=== PATIENT | female | born 1950 | race Caucasian/White ===

== ENCOUNTER 2018-06-28 16:20 | Emergency (ER) | payer BC ==
[2018-06-28 17:00] VITALS: BP 122/68; PULSE 64; TEMP 98.4; BMI 42.0
[2018-06-28] MEDS ORDERED: MECLIZINE HCL 25 MG TABLET (FP) PO ONE (18:45)
--- NOTE | 2018-06-28 18:54 | PDOC ---
History of Present Illness - General Chief Complaint: Lightheaded Stated Complaint: DIZZY & NAUSEA Time Seen by Provider: 06/28/18 17:01 History Source: Patient, Friend Exam Limitations: No Limitations - History of Present Illness Initial Comments: 06/28/18 18:48 CHIEF COMPLAINT: "I feel dizzy since 11 AM this morning." HISTORY OF PRESENT ILLNESS: 67-year-old female with a history of hypertension and borderline cholesterol presents complaining of feeling dizzy like the room is spinning since 11 AM this morning. She states recently she has been under a lot of stress and has been sleeping poorly for several weeks. Today she was not feeling well and she noted some symptoms of dizziness like the room was moving since 11 AM this morning. She states that the symptoms are better when she lies very still without moving. When she turns her head or sits up or changes position, the dizziness and vertigo gets worse. There is nausea but no vomiting. There is no fever. She has had some recent headaches, but no headache today. There is no change in vision. There is no change in facial expression per her friend, and there is no change in speech or swallowing. There is no numbness or weakness. REVIEW OF SYSTEMS: GENERAL/CONSTITUTIONAL: No fever or chills. No weakness. No weight change. HEAD, EYES, EARS, NOSE AND THROAT: No change in vision. No ear pain or discharge. No sore throat. CARDIOVASCULAR: No chest pain or shortness of breath. RESPIRATORY: No cough, wheezing, or hemoptysis. GASTROINTESTINAL: Positive nausea but no vomiting or diarrhea. No rectal bleeding. GENITOURINARY: No dysuria, frequency, or change in urination. MUSCULOSKELETAL: No joint or muscle swelling or pain. No neck or back pain. SKIN AND BREASTS: No rash or easy bruising. NEUROLOGIC: Positive intermittent headache, but no headache today. Positive vertigo and dizziness since 11 AM this morning. See history of present illness. No focal numbness or weakness. PSYCHIATRIC: No depression. Positive anxiety and stress related to work and other things. ENDOCRINE: No increased thirst. No abnormal weight change. HEMATOLOGIC/LYMPHATIC: No anemia, easy bleeding, or history of blood clots. ALLERGIC/IMMUNOLOGIC: No hives or skin allergy. No latex allergy. Past History - Past Medical History Allergies/Adverse Reactions: Allergies Allergy/AdvReac Type Severity Reaction Status Date / Time Penicillins Allergy Intermediate Hives Verified 06/28/18 16:50 Home Medications: Ambulatory Orders Valsartan/Hydrochlorothiazide [Diovan Hct 160-25 mg Tablet] 1 combo PO DAILY 10/03 Aspirin Coated [Ecotrin -] 81 mg PO DAILY 06/28/18 Meclizine HCl [Antivert -] 25 mg PO QID PRN #28 tablet 06/28/18 Naproxen Sodium [Aleve] 220 mg PO BID PRN 06/28/18 Cancer: Yes (CERVICAL CANCER 8 years ago surgery and radiation) COPD: No HTN: Yes Hypercholesterolemia: No (borderline cholesterol, but no treatment recommended) - Immunization History Td Vaccination: No - Suicide/Smoking/Psychosocial Hx Smoking Status: No Smoking History: Never smoked Number of Cigarettes Smoked Daily: 0 Hx Alcohol Use: Yes (FEW OCCASIONS) Drug/Substance Use Hx: No Substance Use Type: None *Physical Exam - Vital Signs Last Vital Signs Temp Pulse Resp BP Pulse Ox 98.4 F 64 18 122/68 99 06/28/18 16:46 06/28/18 16:46 06/28/18 16:46 06/28/18 16:46 06/28/18 16:46 - Physical Exam Comments: 06/28/18 18:50 GENERAL: The patient is awake, alert, and fully oriented, in no acute distress. HEAD: Normal with no signs of trauma. EYES: Pupils equal, round and reactive to light, extraocular movements intact, sclera anicteric, conjunctiva clear. No nystagmus is on upward or downward gaze. Mild lateral gaze night stag mist to the right, extinguishes. ENT: Ears normal, nares patent, oropharynx clear without exudates. Moist mucous membranes. NECK: Normal range of motion, supple without lymphadenopathy, JVD, or masses. LUNGS: Breath sounds equal, clear to auscultation bilaterally. No wheezes, and no crackles. HEART: Regular rate and rhythm, normal S1 and S2 without murmur, rub or gallop. ABDOMEN: Soft, nontender, normoactive bowel sounds. No guarding, no rebound. No masses. EXTREMITIES: Normal range of motion, no edema. No clubbing or cyanosis. No cords, erythema, or tenderness. NEURO: Mental status: The patient is oriented x3. Cranial nerves: Cranial nerves II through XII are intact. No facial asymmetry. Motor: The upper extremities are 5 over 5 in all muscle groups. The lower extremities are 5 over 5 in all muscle groups. Sensation: Sensation is intact to light touch throughout. Cerebellar: Nzbize-ihxhqi-sbyd is normal in both upper extremities. Heel-knee- garcia is normal in both lower extremities. Reflexes: 2+ and symmetric in the upper and lower extremities. Gait: Normal. Heel and toe walking are slow but otherwise normal. PSYCH: Somewhat tearful when describing her work related stress and difficulty sleeping at night. Denies suicidal or homicidal ideation. SKIN: Warm, Dry, normal turgor, no rashes or lesions noted. ED Treatment Course - LABORATORY CBC & Chemistry Diagram: 06/28/18 19:10 06/28/18 19:10 - RADIOLOGY Radiology Studies Ordered: Category Date Time Status HEAD CT WITHOUT CONTRAST [CT] Stat CT Scan 06/28/18 18:44 Ordered Medical Decision Making - Medical Decision Making 06/28/18 18:52 Patient is a 67-year-old female with a history of hypertension. She presents complaining of recent stressors and poor sleep. She also complains of onset this morning of vertigo, worse with movements since 11 AM this morning. At rest she feels fine, but upon moving her head she gets vertigo. Her neurological examination is normal without focal deficits. She also has complained of some intermittent headaches. Impression: Nonspecific headache Positional vertigo since this morning without focal neurological deficits Increased stressors at home and work Plan: Head CT scan CBC, comp EKG Meclizine for symptomatically treatment Further plans pending results 06/28/18 19:[address] Walter Navarro at change of shift with above studies pending. *DC/Admit/Observation/Transfer Diagnosis at time of Disposition: Vertigo - Discharge Dispostion Condition at time of disposition: Good - Prescriptions Prescriptions: Meclizine HCl [Antivert -] 25 mg PO QID PRN #28 tablet PRN Reason: dizziness and vertigo - Referrals Referrals: Cristine Moore MD [Primary Care Provider] - - Patient Instructions - Post Discharge Activity
[2018-06-28] MEDS ORDERED: MECLIZINE HCL 25 MG TABLET (FP) ONE (19:00)
[2018-06-28 19:34] LABS: EOS % 0.3 % (0-4.5); HEMATOCRIT 41.8 % (32.4-45.2); HEMOGLOBIN 14.2 GM/dl (10.7-15.3); LYMPH % 16.1 % (8-40); MCH 31.1 pg (25.7-33.7); MEAN CELL VOLUME 91.6 fl (80-96); MONO % 4.5 % (3.8-10.2); NEUT % 78.1 % (42.8-82.8); PLATELET COUNT 261 K/MM3 (134-434); RBC 4.57 M/mm3 (3.60-5.2); RDW 11.8 % (11.6-15.6); WHITE BLOOD COUNT 10.2 K/mm3 (4.0-10.8)
[2018-06-28 19:52] LABS: ALBUMIN 3.8 g/dl (3.5-5.0); ALK PHOS 46 U/L (32-92); ANION GAP 8 MMOL/L (8-16); BILIRUBIN,TOTAL 1.4 mg/dl (0.2-1.0); BLOOD UREA NITROGEN 17 mg/dl (7-18); CALCIUM 9.3 mg/dl (8.4-10.2); CHLORIDE 101 mmol/L (98-107); CO2 29 mmol/L (22-28); CREATININE 0.6 mg/dl (0.6-1.3); GLUCOSE,RANDOM 140 mg/dl (74-106); POTASSIUM 3.9 mmol/L (3.5-5.1); SGOT/AST 24 U/L (10-42); SGPT/ALT 20 U/L (10-40); SODIUM 138 mmol/L (136-145); TOT PROT 6.8 g/dl (6.4-8.3)
--- NOTE | 2018-06-28 20:53 | PDOC ---
*Physical Exam - Vital Signs Last Vital Signs Temp Pulse Resp BP Pulse Ox 98.4 F 64 18 122/68 99 06/28/18 16:46 06/28/18 16:46 06/28/18 16:46 06/28/18 16:46 06/28/18 16:46 ED Treatment Course - LABORATORY CBC & Chemistry Diagram: 06/28/18 19:10 06/28/18 19:10 - ADDITIONAL ORDERS Additional order review: Laboratory Results 06/28/18 19:10 Sodium 138 Potassium 3.9 Chloride 101 Carbon Dioxide 29 H Anion Gap 8 BUN 17 Creatinine 0.6 Creat Clearance w eGFR > 60 Random Glucose 140 H Calcium 9.3 Total Bilirubin 1.4 H AST 24 D ALT 20 D Alkaline Phosphatase 46 Total Protein 6.8 Albumin 3.8 06/28/18 19:10 RBC 4.57 MCV 91.6 MCHC 34.0 RDW 11.8 MPV 9.0 Neutrophils % 78.1 Lymphocytes % 16.1 Monocytes % 4.5 Eosinophils % 0.3 Basophils % 1.0 - Medications Given in the ED: ED Medications Discontinued Medications Generic Name Dose Route Start Last Admin Trade Name Freq PRN Reason Stop Dose Admin Meclizine HCl 25 mg 06/28/18 18:45 06/28/18 19:10 Antivert - PO 06/28/18 18:46 25 mg ONCE ONE Administration Progress Note - Progress Note Progress Note: Care of this patient was transferred to [place] from Dr. Chacon at 1900 hrs. Patient is a 67-year-old female who comes in complaining of vertigo-type symptoms. Patient had a workup including labs and head CT. Workup was negative including normal white count and no left shift. And chemistries were unremarkable. Head CT was negative for any acute intracranial pathology Patient was given meclizine here in the emergency room with improvement of her symptoms Patient will be given a note for a couple days off from work and a prescription for meclizine was sent to her pharmacy. Patient discharged home and will follow up with her primary care doctor *DC/Admit/Observation/Transfer Diagnosis at time of Disposition: Vertigo - Discharge Dispostion Disposition: HOME Condition at time of disposition: Good Decision to Admit order: No - Prescriptions Prescriptions: Meclizine HCl [Antivert -] 25 mg PO QID PRN #28 tablet PRN Reason: dizziness and vertigo - Referrals Referrals: Teresa,Cristine, MD [Primary Care Provider] - - Patient Instructions Additional Instructions: Take meclizine 1 tablet as often as every 4-6 hours as needed for dizziness. Return to the emergency department immediately with ANY new, persistent or worsening symptoms. Continue any medications as previously prescribed by your physician. You should follow up with your primary doctor as soon as possible regarding today's emergency department visit. . Please make sure your doctor reviews the results of your emergency evaluation. Thank you for coming to the Emergency Department today for your care. It was a pleasure to see you today. Please note that your evaluation is INCOMPLETE until you follow-up with your doctor. - Post Discharge Activity Forms/Work/School Notes: Back to Work
--- NOTE | 2018-06-29 11:20 | EKG ---
Test Reason : Blood Pressure : / mmHG Vent. Rate : 066 BPM Atrial Rate : 066 BPM P-R Int : 142 ms QRS Dur : 082 ms QT Int : 412 ms P-R-T Axes : 059 049 044 degrees QTc Int : 431 ms NORMAL SINUS RHYTHM NORMAL ECG NO PREVIOUS ECGS AVAILABLE Confirmed by VALERI MCCARTHY, NELSON ([id number]) on 06/29/2018 11:19:45 AM Referred By: MARY Confirmed By:NELSON TRAMMELL MD
== END 2018-06-28 20:59 | disposition home or self-care (01) ==
LOC: SUPCPDRO 16:20 → FER 16:20
DX: R42 Dizziness and giddiness (principal); I10 Essential (primary) hypertension
CPT/HCPCS: 36415; 70450-TC; 80053; 85025; 93005; 99283-25

== ENCOUNTER 2019-10-17 09:46 | Emergency (ER) | payer BC ==
--- NOTE | 2019-10-17 09:55 | PDOC ---
History of Present Illness <Tobias Dunn - Last Filed: 10/17/19 13:03> - History of Present Illness Initial Comments: 10/17/19 09:54 HPI: 69 y/o F with hx of HTN, borderline cholestrol, and urolithiasis presenting with right flank pain that started 2 days ago. Pain was gradual in onset and 6/ 10 at its worst. Currently only 4/10. She tried tylenol with minimal relief. Pain radiates to RLQ. She also reports frequent urination but with dribbling and difficulty with continuing stream. Also reports nausea but denies emesis. Denies pain on urination, hematuria, foul smell, chest pain, SOB, fever. She reports chronic back pain but states this feels different from her pain. She reports tolerating diet; she has chronic constipation and usually has bouts of diarrhea in the midst of her constipation; last diarrhea was 2 days ago PMHx: as noted above ROS: as noted SHx: Denies tobacco use; occasional alcohol use; no rec drugs Allergies: NKDA ROS: GENERAL/CONSTITUTIONAL: No fever. No weakness. HEAD, EYES, EARS, NOSE AND THROAT: No change in vision. No ear pain or discharge. No sore throat. CARDIOVASCULAR: No chest pain or shortness of breath RESPIRATORY: No cough, wheezing, or hemoptysis. GASTROINTESTINAL: +nausea; no vomiting, diarrhea or constipation. GENITOURINARY: No dysuria, frequency MUSCULOSKELETAL: No joint or muscle swelling or pain. No neck or back pain. SKIN: No rash NEUROLOGIC: No headache, vertigo, loss of consciousness, or change in strength/ sensation. ENDOCRINE: No increased thirst. No abnormal weight change HEMATOLOGIC/LYMPHATIC: No anemia, easy bleeding, or history of blood clots. ALLERGIC/IMMUNOLOGIC: No hives or skin allergy. PE: GENERAL: Awake, alert, and fully oriented, no acute distress HEAD: No signs of trauma, normocephalic, atraumatic EYES: EOMI, sclera anicteric, conjunctiva clear ENT: Auricles normal inspection, hearing grossly normal, nares patent, oropharynx clear without exudates. Moist mucosa NECK: Normal ROM, no lymphadenopathy LUNGS: No increased work of breathing, symmetrical chest rise, clear to auscultation bilaterally, no wheezes, crackles or rhonchi HEART: Regular rate and rhythm, normal S1 and S2, no murmur, peripheral pulses 2 + and equal bilaterally. ABDOMEN: Soft, nondistended, minimal RLQ ttp without guarding or rebound, Right CVAT, normoactive bowel sounds. No guarding, no rebound. No masses. MUSCULOSKELETAL: Normal inspection, FROM NEUROLOGICAL: Cranial nerves II through XII grossly intact. Normal speech, normal gait, no focal sensorimotor deficits SKIN: Warm, Dry, normal turgor, no rashes or lesions noted <Rebecca Negron - Last Filed: 10/17/19 19:38> - General Chief Complaint: Pain Stated Complaint: RT SIDE BACK PAIN Time Seen by Provider: 10/17/19 09:52 Past History <Tobias Dunn - Last Filed: 10/17/19 13:03> - Past Medical History Cancer: Yes (CERVICAL CANCER 8 years ago surgery and radiation) COPD: No HTN: Yes Hypercholesterolemia: No (borderline cholesterol, but no treatment recommended) - Immunization History Td Vaccination: No - Psycho Social/Smoking Cessation Hx Smoking Status: No Smoking History: Never smoked Number of Cigarettes Smoked Daily: 0 Hx Alcohol Use: Yes (FEW OCCASIONS) Drug/Substance Use Hx: No Substance Use Type: None <Rebecca Negron - Last Filed: 10/17/19 19:38> - Past Medical History Allergies/Adverse Reactions: Allergies Allergy/AdvReac Type Severity Reaction Status Date / Time Penicillins Allergy Intermediate Hives Verified 10/17/19 10:17 Home Medications: Ambulatory Orders Valsartan/Hydrochlorothiazide [Diovan Hct 160-25 mg Tablet] 1 combo PO DAILY 10/03 Desvenlafaxine [Desvenlafaxine ER] 50 mg PO ASDIR 10/17/19 Diclofenac Sodium 75 mg PO ASDIR 10/17/19 Propylthiouracil 50 mg PO DAILY 10/17/19 *Physical Exam - Vital Signs Last Vital Signs Temp Pulse Resp BP Pulse Ox 99 F 87 20 154/99 98 10/17/19 09:47 10/17/19 09:47 10/17/19 09:47 10/17/19 09:47 10/17/19 09:47 <Tobias Dunn - Last Filed: 10/17/19 13:03> ED Treatment Course - LABORATORY CBC & Chemistry Diagram: 10/17/19 10:30 10/17/19 10:30 - ADDITIONAL ORDERS Additional order review: Laboratory Results 10/17/19 10/17/19 10:30 10:30 Sodium 139 Potassium 4.2 Chloride 106 Carbon Dioxide 26 Anion Gap 7 L BUN 12.0 Creatinine 0.7 Est GFR (CKD-EPI)AfAm 103.18 Est GFR (CKD-EPI)NonAf 89.03 Random Glucose 106 Calcium 9.2 Total Bilirubin 1.3 H AST 21 ALT 23 Alkaline Phosphatase 36 L Total Protein 6.5 Albumin 3.5 Urine Color Yellow Urine Appearance Clear Urine pH 6.0 Urine Protein Negative Urine Glucose (UA) Negative Urine Ketones Trace Urine Blood 2+ H Urine Nitrite Negative Urine Bilirubin 1+ H Urine Urobilinogen 1.0 Ur Leukocyte Esterase Trace H Urine RBC 2-5 Urine WBC 2-5 Ur Transition Epith Cell Moderate Calcium Oxalate Crystal Few Urine Mucus 1+ 10/17/19 10:30 RBC 4.47 MCV 92.4 MCHC 34.2 RDW 11.9 MPV 9.2 Neutrophils % 68.4 Lymphocytes % 23.5 Monocytes % 6.8 Eosinophils % 0.7 Basophils % 0.6 - Medications Given in the ED: ED Medications Discontinued Medications Generic Name Dose Route Start Last Admin Trade Name Freq PRN Reason Stop Dose Admin Sodium Chloride 1,000 mls @ 1,000 mls/hr 10/17/19 10:20 10/17/19 10:32 Normal Saline - IV 10/17/19 11:19 1,000 mls/hr ASDIR STA Administration Ketorolac Tromethamine 15 mg 10/17/19 11:24 10/17/19 11:30 Toradol Injection - IVPUSH 10/17/19 11:25 15 mg ONCE ONE Administration <Tobias Dunn - Last Filed: 10/17/19 13:03> - LABORATORY CBC & Chemistry Diagram: 10/17/19 10:30 10/17/19 10:30 <Rebecca Negron - Last Filed: 10/17/19 19:38> Medical Decision Making - Medical Decision Making 10/17/19 10:50 69 y/o F with hx of HTN, borderline cholestrol, and urolithiasis presenting with right flank pain that started 2 days ago associated with dribbling urination and nausea. DDx includes UTI, pyelo, kidney stone. Partial SBO can be considered as well -ua, cbc, cmp, ivf 10/17/19 19:37 UA with 2+ blood; will proceed with CT Ct negaitve will Dc home with likely passed stone vs back pain exacerbation conservative management; return pcxns discussed; no additional questions <Rebecca Negron - Last Filed: 10/17/19 19:38> Discharge - Discharge Information Problems reviewed: Yes - Admission No <Tobias Dunn - Last Filed: 10/17/19 13:03> - Discharge Information Problems reviewed: Yes <Rebecca Negron - Last Filed: 10/17/19 19:38> - Discharge Information Clinical Impression/Diagnosis: Back pain Qualifiers: Back pain location: thoracic back pain Chronicity: acute Back pain laterality: right Qualified Code(s): M54.6 - Pain in thoracic spine Condition: Stable Disposition: HOME - Follow up/Referral Referrals: Lazaro Gomez MD [Staff Physician] - - Patient Discharge Instructions Patient Printed Discharge Instructions: Thoracic Back Pain Additional Instructions: Rest, heat or ice, avoid sitting for prolonged periods of time. Follow-up primary physician in 2 days. Return to ER if symptoms worse.
[2019-10-17 10:02] VITALS: BP 154/99; PULSE 87; TEMP 99; BMI 42.0
[2019-10-17] MEDS ORDERED: SODIUM CHLORIDE 1,000 ML IV STA (10:20)
--- NOTE | 2019-10-17 10:33 | PDOC ---
Attending Attestation - Resident Resident Name: Jamil,Rebecca - ED Attending Attestation I have performed the following: I have examined & evaluated the patient, The case was reviewed & discussed with the resident, I agree w/resident's findings & plan, Exceptions are as noted - HPI HPI: 10/17/19 10:29 Right flank and right lower quadrant pain for 3 days, intermittent but recurrent. History of stones right UV junction 5 years ago, passed spontaneously. Complete hysterectomy for uterine cancer, including bilateral oophorectomy 10 years ago. High blood pressure and recent back pain with radiculopathy, treated with injections by pain management physician. No fever/chills, dysuria, or hematuria. However, admits frequency, passing only small amounts of urine with each episode. - Physicial Exam PE: 10/17/19 10:31 Physical exam: Afebrile, vital signs normal. Right lower quadrant tenderness to deep palpation without guarding or rebound. Mild CVAT. Remainder of exam normal - Medical Decision Making 10/17/19 10:32 Assessment: Probable recurrent renal colic. Rule out infection. Other possibilities include diverticulitis, appendicitis, exacerbation of chronic back pain. Total hysterectomy would preclude uterine/ovarian disease. Plan: Urinalysis, urine culture, CBC and chemistries, further evaluation depending on results. Pain control and fluids. 10/17/19 12:50 Urinalysis with 2-5 red cells, 2-5 white cells. No nitrites or leukocyte esterase CBC and chemistries without significant abnormalities. Specifically, white blood count is normal as his renal function CT is negative, without evidence of urinary tract calculi or other urinary abnormality. GI tract appears normal. The patient symptoms are likely related to her recently exacerbated back pain. Symptomatic treatment and close follow-up. Pain is improved and she is in no significant pain or other distress at discharge with friend to follow-up as directed 10/17/19 13:11 Tylenol 3 prescribed using a written prescription. E prescribing is not functioning.
[2019-10-17 11:08] LABS: BASO % 0.6 % (0-2.0); EOS % 0.7 % (0-4.5); HEMATOCRIT 41.3 % (32.4-45.2); HEMOGLOBIN 14.1 GM/dl (10.7-15.3); LYMPH % 23.5 % (8-40); MCH 31.6 pg (25.7-33.7); MCHC 34.2 g/dl (32.0-36.0); MEAN CELL VOLUME 92.4 fl (80-96); MEAN PLT VOLUME 9.2 fl (7.5-11.1); MONO % 6.8 % (3.8-10.2); NEUT % 68.4 % (42.8-82.8); PLATELET COUNT 288 K/MM3 (134-434); RBC 4.47 M/mm3 (3.60-5.2); RDW 11.9 % (11.6-15.6); WHITE BLOOD COUNT 6.7 K/mm3 (4.0-10.8)
[2019-10-17 11:11] LABS: ALBUMIN 3.5 g/dl (3.4-5.0); BILIRUBIN,TOTAL 1.3 mg/dl (0.2-1); CALCIUM 9.2 mg/dl (8.5-10); CREATININE 0.7 mg/dl (0.55-1.3); POTASSIUM 4.2 mmol/L (3.5-5.1); TOT PROT 6.5 g/dl (6.4-8.2)
[2019-10-17 11:22] LABS: CALCIUM OXALATE CRYSTALS FEW /hpf (NONE SEEN); EPITHELIAL CELLS MODERATE /hpf
[2019-10-17 11:23] LABS: URINE MUCUS 1+
[2019-10-17] MEDS ORDERED: KETOROLAC TROMETHAMINE 15 MG/ML VIAL IVPUSH ONE (11:24)
[2019-10-17] MEDS ORDERED: KETOROLAC TROMETHAMINE 15 MG/ML VIAL ONE (11:28)
== END 2019-10-17 13:26 | disposition home or self-care (01) ==
LOC: FER 09:46
PROC: 3E0333Z Introduction of Anti-inflammatory into Peripheral Vein, Percutaneous Approach (ICD-10-PCS; principal; 2019-10-17)
PROC: 3E0337Z Introduction of Electrolytic and Water Balance Substance into Peripheral Vein, Percutaneous Approach (ICD-10-PCS; 2019-10-17)
DX: M54.6 Pain in thoracic spine (principal); I10 Essential (primary) hypertension; E78.00 Pure hypercholesterolemia, unspecified
CPT/HCPCS: 36415; 74176-TC; 80053; 81003; 81015; 85025; 87077; 87086; 99283-25; J7030

== ENCOUNTER 2022-01-26 11:15 | Emergency (ER) | payer BC ==
[2022-01-26 11:36] VITALS: BP 132/71; PULSE 98; TEMP 99.3; BMI 42.4
== END 2022-01-26 12:58 | disposition home or self-care (01) ==
LOC: FER 11:15
DX: M25.561 Pain in right knee (principal); W01.198A Fall on same level from slipping, tripping and stumbling with subsequent striking against other object, initial encounter
CPT/HCPCS: 73562-TC-RT-FY; 99283-25